=== PATIENT | female | born 1985 | race Caucasian/White ===

== ENCOUNTER 2018-06-20 17:55 | Emergency (ER) | payer OTHER, SELFPAY ==
[2018-06-20 17:56] VITALS: BP 166/90; PULSE 94; RESP 18; TEMP 37.2; O2SAT 97; BMI 32.1
[2018-06-20] MEDS: 0.9% Normal Saline 1,000 ML 1000 ML IV (19:16)
[2018-06-20 19:17] VITALS: BP 154/105; PULSE 72; RESP 14; O2SAT 99
[2018-06-20 19:18] LABS: Absolute Lymphocyte Count 2.15 X10^3/ul (0.83-4.51); Absolute Neutrophil Count 11.3 X10^3/uL (2.0-7.7); Basophil# 0.03 X10^3/uL; Basophil% 0.2 % (0-1); Eosinophil# 0.05 X10^3/uL; Eosinophils% 0.4 % (0-5); Hematocrit 39.1 % (37-47); Hemoglobin 13.1 g/dl (12.0-15.0); Lymphocyte # 2.15 X10^3/ul (4.0); Lymphocyte % 15.1 % (19-41); Mean Corp Hgb Conc 33.5 g/gl (32-36); Mean Corpuscular Hgb 32.2 pg (27.0-32.0); Mean Corpuscular Volume 96.1 fL (81-99); Monocyte% 4.9 % (0-10); Neutrophil # 11.25 X10^3/uL (2.7-7.7); Neutrophil % 79.2 % (47-70); Platelet Count 396 K/mm3 (150-450); RBC Distribution Width CV 12.4 % (11.6-14.6); RBC Distribution Width SD 42.6 fl (35.1-43.9); Red Blood Count 4.07 M/mm3 (4.2-5.4); White Blood Count 14.2 K/mm3 (4.4-11.0)
[2018-06-20 19:22] LABS: POSITIVE COUNT NO; POSITIVE DIFFERENTIAL NO; POSITIVE MORPHOLOGY NO
[2018-06-20 19:24] LABS: Anion Gap 13 (5-15); BUN 7 mg/dL (7-18); BUN/Creat Ratio 7.6 RATIO (10-20); Calcium,Total 9.1 mg/dL (8.5-10.1); Chloride 103 mmol/L (98-107); Creatinine, Serum 0.92 mg/dL (0.55-1.02); EST Glomerular Filtration Rate 74 mL/min (>60); Est Glom Filt Rate - Afr Amer 89 mL/min (>60); Estimated Creatinine Clearance 83.79 ml/min; Glucose 92 mg/dL (74-106); Potassium 3.4 mmol/L (3.5-5.1); Sodium Level 142 mmol/L (136-145)
[2018-06-20 19:40] LABS: Pregnancy, Serum, hCG Quali. NEGATIVE Negative (0-9 Nonpreg)
--- NOTE | 2018-06-20 20:42 | ED.DCSUM_ITS ---
- ER Visit Summary Date of Service: 06/20/18 Chief Complaint: Shaky and dehydrated History of Present Illness: The patient is a 32 F with no primary care physician. She reports that she was out drinking last night with friends. She reports she did not drink excessively. States that this morning she was tired. She went to the [place] and reports that during that she became gradually more uncomfortable. States that her hands and feet were tingling. She had paresthesias to her mouth. She reports she felt shaky and nauseated. States that her mouth felt very dry. Review of systems: General: No fever, chills, cold sweats. Cardiovascular: No chest pain, palpitations. Respiratory: No cough, shortness of breath, dyspnea on exertion. Gastrointestinal: No abdominal pain, vomiting, diarrhea, melena, or hematochezia. Genitourinary: No dysuria, frequency, hematuria. Skin: No rash. Neuro: No headache, weakness. Physical Examination: Vitals: Stable. Afebrile. General: Well-nourished and well-developed. Head: Normocephalic atraumatic. Neck: Supple, no lymphadenopathy. No JVD. Nontender. Cardiovascular: Regular rate and rhythm. No murmurs. Respiratory: No respiratory distress. Clear to auscultation bilaterally. Abdominal: Soft, nontender, nondistended, normal bowel sounds. No guarding, rebound, or peritoneal signs. Back: Nontender. Extremities: Nontender, no edema. Skin: Normal color, no rash. Neurologic: Alert and oriented ?3. Cranial nerves II through XII are intact. Normal strength and sensation. Psych: Normal affect. Test Results: CBC is more for a white count of 14.2 with 79 segmented neutrophils and 15 lymphocytes. Chem-7 marked potassium 3.4. test is negative. Emergency Department Course and Treatment: Patient was given a liter of normal saline. She refused nausea medications. She also refused a urinalysis. Treatment Plan: Patient be discharged instructions push fluids. Follow Dr. Merritt in 1-2 days if not improving. Return to the emergency department for any worsening symptoms. Disposition: To home in improved and stable condition. Impression: 1. Paresthesias, uncertain cause. 2. Leukocytosis. This note was generated with Rootdownation software. It may contain incorrect words, spelling, and punctuation that were not noted in review of the chart prior to signing ED Disposition - Plan for ED Patient: Disposition: Home or Assisted Living Chief Complaint: Fatigue Instructions: ED Paraesthesias Referrals: Claude Merritt DO [NON CLINICAL AFFILIATE] - 1-2 Days if not improving
[2018-06-20 21:04] VITALS: BP 158/95; PULSE 80; RESP 14; O2SAT 98
[2018-06-20 21:10] VITALS: BP 148/89; PULSE 80; RESP 14; O2SAT 98
== END 2018-06-20 21:39 | disposition home or self-care (01) ==
LOC: ED 18:41
PROVIDERS: Emergency Provider Emergency Medicine
DX: D72.829 Elevated white blood cell count, unspecified (principal); R20.2 Paresthesia of skin
CPT/HCPCS: 80048; 84703; 85025; 99284; A4216

== ENCOUNTER 2025-07-06 12:36 | Emergency (ER) | payer OTHER, SELFPAY ==
[2025-07-06] VITALS (10 sets, daily range): BP systolic 111–144; BP diastolic 80–92; PULSE 67–95; RESP 10–18; TEMP 36.4–36.7; O2SAT 97–100; BMI 29.0
--- NOTE | 2025-07-06 13:30 | EKG12_ITS ---
Test Reason : CP Blood Pressure : */* mmHG Vent. Rate : 73 BPM Atrial Rate : 73 BPM P-R Int : 170 ms QRS Dur : 82 ms QT Int : 412 ms P-R-T Axes : 3 -14 8 degrees QTcB Int : 453 ms Normal sinus rhythm with sinus arrhythmia Low voltage QRS Borderline ECG Confirmed by NORMA CASTRO MD ([id number]), website/blog editor MARYANNE LEMA ([id number]) on 07/08/2025 10:42:32 AM Referred By: TB Confirmed By: NORMA CASTRO MD
--- NOTE | 2025-07-06 13:40 | RAD_ITS ---
PROCEDURE: CHEST PA AND LATERAL 07/06/2025 REASON FOR EXAM: CHEST PAIN TECHNIQUE: Procedure Code: RADCXR Modality: DX Procedure: CHEST PA AND LATERAL COMPARISON: None FINDINGS: Hardware: EKG leads. Prior median sternotomy. Heart: Enlarged Mediastinum: Normal Lungs: Clear. No pneumothorax or pleural effusion. Bones: Old, healed fracture posterior right lower rib. RAD/Chest PA and Lateral IMPRESSION: No acute abnormality. Reading Location: [id number]
--- NOTE | 2025-07-06 13:48 | EX.ED.DYSGE1 ---
HPI <Dr. Bon Granger DO - Last Filed: 07/06/25 16:33> History of Present Illness Chief Complaint: Chest Pain Narrative Narrative: Patient is a 39-year-old female with no known significant past medical history who presented to the emergency department the chief complaint of increasing fatigue and palpitations over the last 4 weeks. States that this has been progressively worsening which is what prompted her to come here to the emergency department to be evaluated today. Patient denies any recent travel history denies any history of blood clots. Patient states that she walks her dog about 5 miles daily and does not have any chest pain or shortness of breath associated with this. Patient notes that her mother has thyroid issues and is also concerned about this today. PFSH <Dr. Bon Granger DO - Last Filed: 07/06/25 16:33> [facility] Home Medications ?Medication ?Instructions ?Recorded ?Last Taken ?Type ergocalciferol (vitamin D2) 1,250 1,250 mcg PO .COMPLEX supplement 07/06/25 Unknown History mcg (50,000 unit) capsule Allergy/AdvReac Type Severity Reaction Status Date / Time Penicillins Allergy Unknown Verified 07/06/25 12:39 Social History Smoking Status: Current some day smoker tobacco type: e-cigarettes ROS <Dr. Bon Granger, - Last Filed: 07/06/25 16:33> ROS ED ROS Narrative Constitutional: Denies any fevers, chills, headaches, lightness, dizziness Eyes: Denies changes to double vision Cardiovascular: Denies chest pain but complains of palpitations noted above Respiratory: Denies coughing wheezing shortness Abdomen: Denies abdominal pain nausea vomit diarrhea : Denies any urinary symptoms Neurological: Denies any numbness, weakness, tingling Musculoskeletal: Denies back pain Skin: Denies any rashes or lesions EXAM <Dr. Bon Granger DO - Last Filed: 07/06/25 16:33> Physical Exam Narrative Exam Narrative: General: Patient was lying in bed resting comfortably did not appear to be in acute distress Head: Atraumatic, normocephalic Eyes: PERRL bilaterally, EOMI bilaterally, no conjunctival injection noted Neck: Soft, supple, trachea midline Cardiovascular: Regular rate and rhythm no murmurs gallops rubs noted Respiratory: Clear to auscultation bilaterally no rales rhonchi or wheezes noted Abdomen: Soft, nondistended, nontender to palpation Extremities: Radial pulses +2/4 in the bilateral extremities, +5/5 strength noted in the bilateral upper and lower extremities, no pedal edema no exam Neurological: Patient follow commands knew that she was at [facility] the year is 2024 Skin: Warm, dry, intact no rashes or lesions noted Const Vital Signs: 07/06/25 12:37 07/06/25 13:36 07/06/25 13:41 Temperature 98.1 F Temperature Source Oral Pulse Rate 86 69 Respiratory Rate 14 11 L Respiratory Effort Blood Pressure 144/89 H 128/86 H Blood Pressure Mean 107 100 Pulse Ox 100 100 Oxygen Delivery Method Room Air Room Air Room Air 07/06/25 13:43 07/06/25 14:00 07/06/25 15:00 Temperature Temperature Source Pulse Rate 85 67 Respiratory Rate 17 10 L Respiratory Effort Normal Non-Labored Blood Pressure 111/88 H Blood Pressure Mean 97 Pulse Ox 97 100 Oxygen Delivery Method 07/06/25 16:00 07/06/25 17:00 07/06/25 18:00 Temperature Temperature Source Pulse Rate 76 71 82 Respiratory Rate 17 14 17 Respiratory Effort Blood Pressure 129/92 H 120/82 H 137/85 H Blood Pressure Mean 105 89 101 Pulse Ox 100 100 100 Oxygen Delivery Method 07/06/25 19:00 07/06/25 20:00 Temperature Temperature Source Pulse Rate 77 95 Respiratory Rate 16 18 Respiratory Effort Blood Pressure 127/80 H 126/90 H Blood Pressure Mean 95 102 Pulse Ox 99 99 Oxygen Delivery Method Room Air Room Air <Dr. Fei Sands MD - Last Filed: 07/06/25 20:19> Physical Exam Const Vital Signs: 07/06/25 12:37 07/06/25 13:36 07/06/25 13:41 Temperature 98.1 F Temperature Source Oral Pulse Rate 86 69 Respiratory Rate 14 11 L Respiratory Effort Blood Pressure 144/89 H 128/86 H Blood Pressure Mean 107 100 Pulse Ox 100 100 Oxygen Delivery Method Room Air Room Air Room Air 07/06/25 13:43 07/06/25 14:00 07/06/25 15:00 Temperature Temperature Source Pulse Rate 85 67 Respiratory Rate 17 10 L Respiratory Effort Normal Non-Labored Blood Pressure 111/88 H Blood Pressure Mean 97 Pulse Ox 97 100 Oxygen Delivery Method 07/06/25 16:00 07/06/25 17:00 07/06/25 18:00 Temperature Temperature Source Pulse Rate 76 71 82 Respiratory Rate 17 14 17 Respiratory Effort Blood Pressure 129/92 H 120/82 H 137/85 H Blood Pressure Mean 105 89 101 Pulse Ox 100 100 100 Oxygen Delivery Method 07/06/25 19:00 07/06/25 20:00 Temperature Temperature Source Pulse Rate 77 95 Respiratory Rate 16 18 Respiratory Effort Blood Pressure 127/80 H 126/90 H Blood Pressure Mean 95 102 Pulse Ox 99 99 Oxygen Delivery Method Room Air Room Air [facility] <Dr. Bon Granger, DO - Last Filed: 07/06/25 16:33> [facility] Narrative Medical decision making narrative: Patient is a 39-year-old female who presents to the emergency department chief complaint of palpitations. On the differential diagnose includes Melamin to hyperthyroidism, ACS, pneumonia, pneumothorax, cardiac arrhythmia, electrolyte abnormality. Once workup is obtained reviewed she will be reevaluated. Patient CBC reviewed which showed no evidence of cytosis white blood count normal at 10.3, he was 13.2, plate count of 398. Patient sodium was 139, potassium normal at 4, creatinine was 0.75. Patient magnesium level was 2.4, troponin was less than 6 delta troponin obtained was noted to be 18 therefore 4-hour troponin will be added on as well as a D-dimer. Patient proBNP was less than 36. Patient's EKG was reviewed as well which showed sinus rhythm with a rate of 73 bpm. Patient TSH normal at 2.02, free T4 and T3 normal at 1 and 2.4 respectively. Patient's chest x-ray reviewed by myself by radiology showed no acute cardiopulmonary processes. I did discuss these results with the patient and her case will be signed out to oncoming provider to follow-up on D-dimer and 4-hour troponin. I discussed with her at this point time I have low suspicion for cardiac etiology given her symptoms have been going on for significant time however did discuss with her Holter monitor which will be ordered as well. Pending her 4-hour troponin is flat and D-dimer is normal she will be discharged with instructions to follow-up with her doctor in the outpatient setting. She is advised to return with worsening symptoms or any concerns. She was agreeable this plan. See oncoming provider's note for addendum for ultimate disposition. Lab Data Labs: Laboratory Results - last 24 hr 07/06/25 07/06/25 07/06/25 13:42 15:15 16:20 WBC 10.3 RBC 4.15 L Hgb 13.2 Hct 39.4 MCV 94.9 MCH 31.8 MCHC 33.5 RDW Std Deviation 43.7 RDW Coeff of [place] 12.7 Plt Count 398 MPV 8.8 Immature Gran % (Auto) 0.400 Neut % (Auto) 64.4 Lymph % (Auto) 27.5 [place] % (Auto) 5.5 Eos % (Auto) 1.7 Baso % (Auto) 0.5 Absolute Neuts (auto) 6.6 Absolute Lymphs (auto) 2.83 Nucleated RBC % 0 D-Dimer Quant (PE/DVT) < 0.27 L Sodium 139 Potassium 4.0 Chloride 103 Carbon Dioxide 23.7 Anion Gap 12 BUN 8 Creatinine 0.75 Estim Creat Clear Calc 109.90 Est GFR (MDRD) Non-Af 98 BUN/Creatinine Ratio 10.8 Glucose 87 Calcium 9.3 Magnesium 2.4 H Troponin T High Sens < 6 Troponin T Hi Sens 2 Hr 18 H Troponin T Hi Sens 4Hr NT pro BNP II < 36 TSH 2.020 Free T4 1.00 Free T3 pg/dL 2.4 07/06/25 17:38 WBC RBC Hgb Hct MCV MCH MCHC RDW Std Deviation RDW Coeff of [place] Plt Count MPV Immature Gran % (Auto) Neut % (Auto) Lymph % (Auto) [place] % (Auto) Eos % (Auto) Baso % (Auto) Absolute Neuts (auto) Absolute Lymphs (auto) Nucleated RBC % D-Dimer Quant (PE/DVT) Sodium Potassium Chloride Carbon Dioxide Anion Gap BUN Creatinine Estim Creat Clear Calc Est GFR (MDRD) Non-Af BUN/Creatinine Ratio Glucose Calcium Magnesium Troponin T High Sens Troponin T Hi Sens 2 Hr Troponin T Hi Sens 4Hr < 6 NT pro BNP II TSH Free T4 Free T3 pg/dL Radiography Diagnostic Testing: Clinical Impression(s) from Imaging Studies Chest X-Ray 07/06/25 13:40 IMPRESSION: No acute abnormality. Reading Location: [id number] <Dr. Fei Sands MD - Last Filed: 07/06/25 20:19> [facility] Lab Data Labs: Laboratory Results - last 24 hr 07/06/25 07/06/25 07/06/25 13:42 15:15 16:20 WBC 10.3 RBC 4.15 L Hgb 13.2 Hct 39.4 MCV 94.9 MCH 31.8 MCHC 33.5 RDW Std Deviation 43.7 RDW Coeff of [place] 12.7 Plt Count 398 MPV 8.8 Immature Gran % (Auto) 0.400 Neut % (Auto) 64.4 Lymph % (Auto) 27.5 [place] % (Auto) 5.5 Eos % (Auto) 1.7 Baso % (Auto) 0.5 Absolute Neuts (auto) 6.6 Absolute Lymphs (auto) 2.83 Nucleated RBC % 0 D-Dimer Quant (PE/DVT) < 0.27 L Sodium 139 Potassium 4.0 Chloride 103 Carbon Dioxide 23.7 Anion Gap 12 BUN 8 Creatinine 0.75 Estim Creat Clear Calc 109.90 Est GFR (MDRD) Non-Af 98 BUN/Creatinine Ratio 10.8 Glucose 87 Calcium 9.3 Magnesium 2.4 H Troponin T High Sens < 6 Troponin T Hi Sens 2 Hr 18 H Troponin T Hi Sens 4Hr NT pro BNP II < 36 TSH 2.020 Free T4 1.00 Free T3 pg/dL 2.4 07/06/25 17:38 WBC RBC Hgb Hct MCV MCH MCHC RDW Std Deviation RDW Coeff of [place] Plt Count MPV Immature Gran % (Auto) Neut % (Auto) Lymph % (Auto) [place] % (Auto) Eos % (Auto) Baso % (Auto) Absolute Neuts (auto) Absolute Lymphs (auto) Nucleated RBC % D-Dimer Quant (PE/DVT) Sodium Potassium Chloride Carbon Dioxide Anion Gap BUN Creatinine Estim Creat Clear Calc Est GFR (MDRD) Non-Af BUN/Creatinine Ratio Glucose Calcium Magnesium Troponin T High Sens Troponin T Hi Sens 2 Hr Troponin T Hi Sens 4Hr < 6 NT pro BNP II TSH Free T4 Free T3 pg/dL 4-hour troponin was less than 6. D-dimer is normal. Therefore will discharge to home. Radiography Diagnostic Testing: Clinical Impression(s) from Imaging Studies Chest X-Ray 07/06/25 13:40 IMPRESSION: No acute abnormality. Reading Location: [facility] Discharge Plan Triage Chief Complaint: Chest Pain ED Provider: Bon Granger Dx/Rx/DC Orders Clinical Impression: Heart palpitations, Chest pain Prescriptions: No Action ergocalciferol (vitamin D2) 1,250 mcg (50,000 unit) capsule 1,250 mcg PO .COMPLEX Rx Instructions: 1,250 mcg orally every other week; Primary Care Provider: Amelia Laughlin Referrals: Amelia Laughlin DO [Primary Care Provider, Internal Medicine] Activity Restrictions/Additional Instructions: Follow-up with your doctor in outpatient setting. Return with worsening symptoms or any concerns. Wear Holter monitor as prescribed. Print Language: Armenian
[2025-07-06 13:52] LABS: Hematocrit 39.4 % (37-47); Hemoglobin 13.2 g/dL (12.0-15.0); Immature Granulocytes Count 0.040 X10^3/uL (0.0-0.0); Mean Corp Hgb Conc 33.5 g/dL (32-36); Mean Corpuscular Volume 94.9 fL (81-99); Mean Platelet Vol. 8.8 fl (6.2-12.0); NRBC Flagged by Analyzer 0 % (0-5); Platelet Count 398 K/mm3 (150-450); RBC Distribution Width CV 12.7 % (11.6-14.6); RBC Distribution Width SD 43.7 fl (35.1-43.9); Red Blood Count 4.15 M/mm3 (4.2-5.4); White Blood Count 10.3 K/mm3 (4.4-11.0)
[2025-07-06] MEDS: 0.9% Normal Saline (1000mL) 1,000 ML 999 ML IV (14:15)
[2025-07-06 14:30] LABS: Free T3 2.4 pg/mL (2.18-3.98); Magnesium 2.4 mg/dL (1.5-2.2)
[2025-07-06 14:41] LABS: Anion Gap 12 (5-15); BUN 8 mg/dL (4-19); Calcium,Total 9.3 mg/dL (7.6-11.0); Carbon Dioxide 23.7 mmol/L (21.0-32.0); Chloride 103 mmol/L (98-108); Glucose 87 mg/dL (70-99); Potassium 4.0 mmol/L (3.3-5.1)
[2025-07-06 14:46] LABS: BUN/Creat Ratio 10.8 RATIO (10-20); Estimated Creatinine Clearance 109.90 ml/min (50-250)
[2025-07-06 14:47] LABS: Pro- Brain NATRIURETIC PEPTIDE < 36 pg/mL (<=450); Troponin T High Sensitivity < 6 ng/L (<=14)
[2025-07-06 16:09] LABS: Troponin T High Sens 2 HR 18 ng/L (<=14)
[2025-07-06 17:34] LABS: D-Dimer Quantitative (DVT/PE) < 0.27 FEU/ug/m (0.27-0.49)
[2025-07-06 18:24] LABS: Troponin T High Sens 4 HR < 6 ng/L (<=14)
== END 2025-07-06 20:42 | disposition home or self-care (01) ==
PROVIDERS: Emergency Provider Emergency Medicine; PCP Internal Medicine; Visit Provider Emergency Medicine
DX: R07.89 Other chest pain (principal); R53.83 Other fatigue; R06.02 Shortness of breath; R00.2 Palpitations; F17.290 Nicotine dependence, other tobacco product, uncomplicated
CPT/HCPCS: 71046; 80048; 83735; 83880; 84439; 84443; 84481; 84484; 85025; 85379; 93005; 96360; 96361; 99283; A4216

== ENCOUNTER → 2025-07-06 | Outpatient (CLI) | payer OTHER, SELFPAY | END | disposition home or self-care (01) | LOC: CVS 20:26 | PROVIDERS: PCP Internal Medicine; Visit Provider Emergency Medicine | DX: R00.2 Palpitations (principal) | CPT/HCPCS: 93225; 93226 ==

== ENCOUNTER → 2025-08-31 | Outpatient (CLI) | payer OTHER, SELFPAY ==
--- NOTE | 2025-08-31 14:09 | ECHOD_ITS ---
Reason For Study Reason For Study: CHEST PAIN Procedure This was a 2D Doppler, Color Flow transthoracic echocardiogram. Exam performed in department. Left Ventricle Normal size and thickness. The left ventricular ejection fraction is 65 %. Normal diastololic function. Right Ventricle Normal right ventricle. Atria The left and right atria are normal. Mitral Valve Trivial mitral valve insufficiency. Tricuspid Valve Trivial tricuspid valve insufficiency. Unable to estimate RV systolic pressure due to insufficient tricuspid regurgitant envelope. Aortic Valve Trisinus/trileaflet aortic valve. Pulmonic Valve The pulmonic valve is not well visualized. Great Vessels Normal sized aortic root. Pericardium/Pleural No pericardial effusion. MMode/2D Measurements & Calculations LVIDd: 4.5 cm IVSd: 0.69 cm Ao root diam: 3.6 cm LVIDs: 2.3 cm LVPWd: 0.86 cm RVDd: 3.2 cm FS: 49.7 % LAV(MOD-bp): 37.0 ml LVAd ap4: 26.5 cm2 LVAd ap2: 26.5 cm2 LAV(MOD-bp) Indexed: 19.2 ml/m2 LVLd ap4: 8.6 cm LVLd ap2: 8.2 cm LAV(MOD-sp2): 39.6 ml EDV(MOD-sp4): 67.8 ml EDV(MOD-sp2): 71.1 ml LAV(MOD-sp4): 29.9 ml EDV(sp4-el): 68.9 ml EDV(sp2-el): 72.9 ml LVAs ap4: 11.8 cm2 LVAs ap2: 12.3 cm2 LVLs ap4: 6.7 cm LVLs ap2: 6.5 cm ESV(MOD-sp4): 19.5 ml ESV(MOD-sp2): 20.4 ml ESV(sp4-el): 17.5 ml ESV(sp2-el): 19.8 ml EF(MOD-sp4): 71.2 % EF(MOD-sp2): 71.3 % EF(sp4-el): 74.5 % SV(MOD-sp4): 48.3 ml SV(MOD-sp2): 50.7 ml SV(sp4-el): 51.3 ml SI(MOD-sp4): 25.0 ml/m2 SI(MOD-sp2): 26.2 ml/m2 LA A4 area: 13.9 cm2 LA dimension(2D): 3.2 cm RA A4 area: 12.7 cm2 TAPSE: 2.1 cm Time Measurements MV dec time: 0.25 sec Doppler Measurements & Calculations MV E max medardo: 71.2 cm/sec Lat Peak E' Medardo: 15.4 cm/sec Med Peak E' Medardo: 10.6 cm/sec MV A max medardo: 56.7 cm/sec E/E' lat: 4.6 E/E' med: 6.7 MV E/A: 1.3 Ao V2 max: 100.6 cm/sec LV V1 max: 88.2 cm/sec MV dec slope: 288.3 cm/sec2 Ao max P.1 mmHg LV V1 max P.1 mmHg Ao V2 mean: 72.0 cm/sec LV V1 mean P.8 mmHg Ao mean P.3 mmHg LV V1 mean: 63.1 cm/sec Ao V2 VTI: 22.9 cm LV V1 VTI: 17.0 cm AV (velocity ratio): 0.74 PA V2 max: 70.8 cm/sec ECHO/Echo Complete Interpretation Summary The left ventricular ejection fraction is 65 %. Normal diastololic function. Ordering Physician: Amelia Laughlin Referring Physician: Amelia Laughlin Performed By: Braxton Lujan RDCS
== END | disposition home or self-care (01) ==
LOC: CVS 14:08
PROVIDERS: PCP Internal Medicine; Referring Provider Internal Medicine; Visit Provider Internal Medicine
DX: R07.89 Other chest pain (principal)
CPT/HCPCS: 93306